=== PATIENT | female | born 1985 | race Two or more races ===

== ENCOUNTER 2025-02-10 17:02 | Outpatient (CLI) | payer OTHER, SELFPAY ==
--- NOTE | 2025-02-10 18:15 | CRLHL7_ITS ---
For Patients: As a result of the Century Cures Act, medical imaging exams and procedure reports are released immediately into your electronic medical record. You may view this report before your referring provider. If you have questions, please contact your health care provider. INDICATION: Low back pain. TECHNIQUE: Noncontrast sagittal and axial T1, T2, and sagittal STIR sequences are provided. No comparisons. FINDINGS: The overall stature, alignment and intrinsic marrow signal of the lumbar spine is within normal limits. Conus is normal. L1-2: Unremarkable. L2-3: Minor left intraforaminal disc bulge results in no central canal or foraminal narrowing. L3-4: Minor left intraforaminal disc protrusion results in near contact of the exiting left L3 nerve root with no central canal or right foraminal narrowing. L4-5: Right posterior paracentral/lateral recess disc protrusion extends approximately 6 millimeters beyond the posterior vertebral body margin resulting in severe right lateral recess narrowing with compression of the traversing right L5 nerve root. Mild central canal and neural foraminal narrowing. L5-S1: Minor broad-based posterior disc bulge results in no central canal or foraminal narrowing IMPRESSION: 1. Prominent right posterior paracentral/lateral recess disc protrusion at L4-5 resulting in severe right lateral recess narrowing with compression of the traversing right L5 nerve root. 2. Minor left intraforaminal disc protrusion at L3-4 resulting in near contact of the exiting left L3 nerve root. 3. Milder degenerative changes within the remainder of the lumbar spine as outlined above. Dictated by Dennis Bustos MD @ 02/11/2025 8:39:51 AM (Electronically Signed)
== END 2025-02-10 17:03 | disposition home or self-care (01) ==
LOC: MRI 17:02
PROVIDERS: PCP Nurse Practitioner Family; Visit Provider Nurse Practitioner Family
DX: M51.26 Other intervertebral disc displacement, lumbar region (principal)
CPT/HCPCS: 72148

== ENCOUNTER 2025-02-27 14:15 | Outpatient (RCR) | payer OTHER, SELFPAY | END 2025-05-29 16:10 | disposition home or self-care (01) | PROVIDERS: PCP Nurse Practitioner Family; Visit Provider Nurse Practitioner Family | DX: M54.59 Other low back pain (principal); Z51.89 Encounter for other specified aftercare | CPT/HCPCS: 97110; 97140; 97161; 97530 ==